=== PATIENT | male | born 1960 | race African-American/Black ===

== ENCOUNTER 2018-03-05 19:52 | Inpatient (IN) | payer OTHER ==
[~2018-03-05] VITALS: Ht 167.6 cm; Wt 94.0 kg
--- NOTE | ~2018-03-05 | EKG ---
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 : 1960 Requested By: Tila Robbins Order Number: [id number] MD: Phill Farmer Measurements Intervals [place] Rate: 62 P: 37 [place]: 168 QRS: -34 QRSD: 103 T: QT: 493 QTc: 501 Interpretive Statements Sinus rhythm Abnormal R-wave progression, late transition LVH with secondary repolarization abnormality No previous ECG available for comparison Electronically Signed On 03-06-2018 8:49:02 DIGITAL ACCOUNT DIRECTOR by Phill Farmer [email or web address] <ELECTRONICALLY SIGNED> By: Phill Farmer MD 03/06/18 0849 0646 5 Phill Farmer MD /TREV
--- NOTE | ~2018-03-05 | EKG ---
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: DELILAH : 1960 Requested By: Saritha Barton Order Number: [id number] MD: Phill Farmer Measurements Intervals [place] Rate: 75 P: 19 MO: 170 QRS: -35 QRSD: 108 T: 136 QT: 401 QTc: 448 Interpretive Statements Sinus rhythm Probable left atrial enlargement LVH with secondary repolarization abnormality No previous ECG available for comparison Electronically Signed On 03-06-2018 8:44:30 MICROBIOLOGY LAB TECHNICIAN by Phill Farmer [email or web address] <ELECTRONICALLY SIGNED> By: Phill Farmer MD 03/06/18 0844 2150 50 Phill Farmer MD /TREV
--- NOTE | ~2018-03-05 | EKG ---
[address] [address] ELECTROCARDIOGRAM REPORT Name: FANTA CHILELPH Room #: 217- DIS IN M.R.#: [id number] Admission: 03/05/18 Attend Phys: Dann Carbajal MD Discharge: 03/07/18 Date of : 58 Report #: [id number] THIS REPORT FOR: //name// 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
--- NOTE | ~2018-03-05 | EKG ---
[address] [place] [place] [address] ELECTROCARDIOGRAM REPORT Name: ESTEE CHILEL Room #: 217-P ADM IN M.R.#: [id number] Admission: 03/05/18 Attend Phys: Dann Carbajal MD Discharge: Date of : 58 Report #: [id number] THIS REPORT FOR: //name// 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: DELILAH : 1960 Requested By: Saritha Barton Order Number: [id number] MD: Phill Farmer Measurements Intervals [place] Rate: 81 P: 21 CT: 167 QRS: -38 QRSD: 108 T: 89 QT: 428 QTc: 497 Interpretive Statements Sinus rhythm Probable left atrial enlargement Incomplete left bundle branch block LVH with secondary repolarization abnormality Anterior Q waves, possibly due to LVH No previous ECG available for comparison Electronically Signed On 03-06-2018 8:43:50 ETCHER PHOTOENGRAVING by Phill Farmer [email or web address] <ELECTRONICALLY SIGNED> By: [place] [id number] Phill Farmer MD /TREV
--- NOTE | ~2018-03-05 | 2DMMODE ---
[facility] [place] [address] 2 D/M-MODE ECHOCARDIOGRAM Name: ESTEE CHILEL Room #: 217-P ADM IN M.R.#: [id number] Admission: 03/05/18 Attend Phys: Dann Carbajal MD Discharge: Date of : 58 Date of Service: 03/06/18 1437 Report #: [id number] THIS REPORT FOR: //name// APPROVED REPORT Study performed: 03/06/2018 12:32:46 EXAM: Comprehensive 2D, Doppler, and color-flow Echocardiogram Patient Location: Bedside Room #: 217 Status: routine BSA: 2.03 HR: 70 bpm BP: 107/71 mmHg Rhythm: LBBB Other Information Study Quality: Adequate/off axis window Indications Status post Cath/stent, HTN, CAD. Hx: SVT, Afib, ablation, DM, HLP. 2D Dimensions RVDd: 41.10 mm IVSd: 11.84 (7-11mm) LVOT Diam: 20.04 (18-24mm) LVDd: 47.67 mm PWd: 12.22 (7-11mm) LVDs: 38.81 (25-40mm) Aortic Root: 35.12 mm Volumes Left Atrial Volume (Systole) Single Plane 4CH: 56.15 mL Single Plane 2CH: 57.28 mL LA ESV Index: 32.00 mL/m2 Aortic Valve AoV Peak Harry.: 1.44 m/s AO Peak Gr.: 8.29 mmHg LVOT Max P.99 mmHg LVOT Max V: 0.71 m/s SANJIV Vmax: 1.55 cm2 Mitral Valve E/A Ratio: 0.7 MV Decel. Time: 242.94 ms [facility] [place] [address] 2 D/M-MODE ECHOCARDIOGRAM Name: ESTEE CHILEL Room #: [facility] ADM IN .R.#: [id number] Admission: 03/05/18 Attend Phys: Dnan Carbajal MD Discharge: Date of : 58 Date of Service: 03/06/18 1437 Report #: [id number] MV E Max Harry.: 0.49 m/s MV A Harry.: 0.73 m/s MV PHT: 70.45 ms IVRT: 107.27 ms Tricuspid Valve TR Peak Harry.: 1.75 m/s RAP Estimate: 5.00 mmHg TR Peak Gr.: 12.25 mmHg PA Pressure: 17.00 mmHg Left Ventricle The left ventricle is normal size. Regional wall motion abnormalities are noted. Paradoxical septal motion consistent with conduction abnormality. Mild concentric left ventricular hypertrophy. Left ventricular systolic function is moderately decreased.inf wall hypokinetic LVEF is 40=45% Mild diastolic dysfunction is present (impaired relaxation pattern). Right Ventricle The right ventricle is normal size. Right ventricle is mildly hypokinetic. Atria The left atrium size is normal. The right atrium size is normal. Aortic Valve The aortic valve is not well visualized. No aortic regurgitation is present. There is no aortic valvular stenosis. Mitral Valve The mitral valve is normal in structure. Trace mitral regurgitation. Tricuspid Valve The tricuspid valve is normal in structure. Trace tricuspid regurgitation. Estimated PAP is 15-20mmHg. Pulmonic Valve Pulmonic valve is not well visualized. Great Vessels The aortic root was difficult to image. Ascending aorta is not well visualized. IVC is normal in size and collapses >50% with inspiration. [facility] [address] [place] [address] 2 D/M-MODE ECHOCARDIOGRAM Name: ESTEE CHILEL Room #: 217-P ADM IN M.R.#: [id number] Admission: 03/05/18 Attend Phys: Dann Carbajal MD Discharge: Date of : 58 Date of Service: 03/06/18 1437 Report #: [id number] Pericardium There is no pericardial effusion. <Conclusion> The left ventricle is normal size. Mild concentric left ventricular hypertrophy. Left ventricular systolic function is moderately decreased.inf wall hypokinetic LVEF is 40=45% Mild diastolic dysfunction is present (impaired relaxation pattern). Right ventricle is mildly hypokinetic. There is no aortic valvular stenosis. Trace mitral regurgitation. Trace tricuspid regurgitation. Estimated PAP is 15-20mmHg. The aortic root was difficult to image. There is no pericardial effusion. <ELECTRONICALLY SIGNED> By: Matthias Gutiérrez MD, FACC 03/06/18 [phone] 36 Matthias Gutiérrez MD, FACC /INF
--- NOTE | ~2018-03-05 | CATHLAB ---
[facility] [address] [place] [address] INVASIVE PROCEDURE REPORT Name: ESTEE CHILEL Room #: 217-P ADM IN M.R.#: [id number] Admission: 03/05/18 Attend Phys: Dann Carbajal MD Discharge: Date of : 58 Date of Service: 03/07/18 1043 Report #: [id number] THIS REPORT FOR: //name// APPROVED REPORT Study performed: 03/06/2018 09:35:20 Patient Details Patient Status: In-Patient Room #: 217 The patient is a 57 year-old male Event Personnel Matthias Gutiérrez Tire Mounter, Ale Dey, BERRY PICKER MACHINE OPERATOR Monitor, Mandeep Ann RN RN, Mian Ibarra Scrub Procedures Performed Art Access - R femoral artery* Left Heart Cath w/or w/o Coronaries [id number] [facility] Aortogram Abdominal Peripheral Angio 171736 MAXIMUS Place w/wo Plasty Single RCA 298539 76387 Initial Mod Sed Same Phys/QHP Gr5y 397231 91716 Mod Sed Same Phys/QHP Ea 381475 54493 Mod Sed Same Phys/QHP Ea 043696 55589 Mod Sed Same Phys/QHP Ea 093603 Indication Chest pain Procedure Narrative The Right Groin^ was infiltrated with 1% Lidocaine subcutaneous anesthesia. A PINNACLE 6FR Sheath #[id number] sheath was inserted into the RFA^. Coronary angiography was performed using coronary diagnostic catheters. The right coronary system was accessed and visualized with a JR4 catheter. The left coronary system was accessed and visualized with a JL4 catheter. The left ventricle was accessed and visualized with a Pigtail catheter. Left ventriculogram was performed in 30 degree projection. An aortogram of the abdominal aorta was performed. Closure device was deployed with a 6 Fr MYNXGRIP 6/7F #[id number]. The patient tolerated the procedure well and there were no complications associated with the procedure. There was no hematoma. Intraoperative Conscious Sedation Sedation start time: 09:56 Case end Time: 11:20 Fentanyl 50 mcg Versed [address] [address] INVASIVE PROCEDURE REPORT Name: FANTA CHILELPH Room #: 217-P [facility] IN ..#: [id number] Admission: 03/05/18 Attend Phys: Dann Carbajal MD Discharge: Date of : 58 Date of Service: 03/07/18 1043 Report #: [id number] Fluoro Time: 14.55 minutes Dose: DAP 82933.70 cGycm2 2123 mGy Contrast Type and Amount: Omnipaque 195 ml Hemodynamics The aortic pressure is 118/69 mmHg with a mean of 93 mmHg. The left ventricular pressure is 111/13 mmHg with a mean of mmHg. The left ventricular end diastolic pressure is 23 mmHg. PCI Technique Lesion Percutaneous coronary intervention was performed on the mid right coronary artery. A LAUNCHER 6FR JR 4 #[id number] Guide Catheter was used to engage the ostium. A Luge Wire .014 x 182CM #[id number] Interventional Guidewire was used to cross the lesion. BALLOON DILATION A Balloon catheter Sprinter OTW 2.25 x 12 #[id number] was inserted and inflated up to 12.00atm for 16seconds. Additional Inflation: 14.00atm for 43seconds. A second .014 Luge wire was introduced down the RV branch. Then a 2.5mm x 12mm Sprinter OTW balloon was introduced and inflated to 8 lorraine for 30 seconds. An additional inflation was performed at 12 lorraine for 47 seconds. STENT DEPLOYMENT A drug-eluting stent RESOLUTE SLADE OTW 3.5 X 22 #[id number] was inserted and inflated up to 14.00atm for 37seconds. POST STENT DEPLOYMENT BALLOON DILATION The second .014 Luge wire was reintroduced down the RV branch and the 2.5mm x 12mm Sprinter OTW balloon was reintroduced down the RV branch. The balloon was inflated to 8atms for 32 seconds. Conclusion #1 assessment PTCA stent of a totally occluded proximal RCA dominant vessel. Placement of a 3.5 x 20 to resolute on extent postdilated 3.6 mm. ESTHER grade 3 flow ESTHER grade 3 blush proximal RCA lesion of 50-60% exist #2 successful PTCA of what presumably would be an acute marginal branch but distribution slight a posterior lateral or portion of the inferior wall large in size 100% her subtotaled to 30-40% with ESTHER grade 3 flow #3 left main is long and free of disease giving rise to LAD and circumflex #4 LAD extends to the apex with mild irregularity. 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 Anatomically nondominant. Eccentric 50% mid OM lesion #6 normal left ventricular size with subtle inferior wall hypokinesis EF 50% range #7 abdominal aorta is intact without evidence of aneurysm bilateral renal arteries are widely patent This case utilize a 2 wire approach due to the large bifurcation nature of the disease with the acute OM branch having significant distribution in the dominant right. This was both at the area of occlusion. Recommendations and plan: Continue aggressive risk factor modification. Dual antiplatelet therapy times one year. Patient transfer to CCU in stable but guarded condition. Patient is from [facility] Will recommend close follow-up with food processor once he returns home from the holiday. <ELECTRONICALLY SIGNED> By: Matthias Gutiérrez MD, FACC 03/07/18 1043 1043 104 Matthias Gutiérrez MD, FACC /INF
[2018-03-05 20:00] VITALS: BP 156/89
[2018-03-05 20:46] LABS: ABSOLUTE NEUTROPHILS 2.3 thou/uL (1.4-8.2); BASOPHILS 0.5 % (0.0-2.0); EOSINOPHILS 2.3 % (0.0-3.0); HEMATOCRIT 51.6 % (42.0-52.0); HEMOGLOBIN 17.8 gm/dL (14.0-18.0); LYMPHOCYTES 51.8 % (24.0-44.0); MCH 31.4 pg (26.0-34.0); MCHC 34.5 g/dL (28.0-37.0); MCV 91.1 fL (80.0-100.0); MONOCYTES 9.8 % (1.0-8.0); PLATELET COUNT 261 thou/uL (150-400); POLYS 35.6 % (36.0-66.0); RBC 5.67 mil/uL (4.50-6.00); RDW 12.8 % (10.5-14.5); WBC 6.6 thou/uL (4.0-11.0)
[2018-03-05 20:49] LABS: ANION GAP 10 mmol/L (7-16); BUN 13 mg/dL (7-18); CALCIUM 9.7 mg/dL (8.5-10.1); CHLORIDE 99 mmol/L (98-107); CO2 26 mmol/L (21-32); CREATININE 0.9 mg/dL (0.7-1.3); GLUCOSE 149 mg/dL (74-106); SODIUM 135 mmol/L (136-145)
[2018-03-05 20:58] LABS: ALBUMIN 4.2 g/dL (3.4-5.0); SGOT 32 U/L (15-37); SGPT 34 U/L (30-65); TOTAL BILIRUBIN 0.9 mg/dL (<0.1-1.0); TOTAL PROTEIN 8.3 g/dL (6.4-8.2); TROPONIN-I <0.06 ng/mL (<0.06)
[2018-03-06] VITALS (18 sets, daily range): BP systolic 95–165; BP diastolic 44–95
[2018-03-06] MEDS ORDERED: TOPROL XL25 MG PO (00:45)
[2018-03-06] MEDS ORDERED: PROZAC10 MG PO (00:46)
[2018-03-06 05:29] LABS: CHOLESTEROL 243 mg/dL (<200); HDL CHOLESTEROL 42 mg/dL (>40); LDL CHOLESTEROL 171 mg/dL (<100); TC:HDL 5.8 Ratio (Not establshd); TRIGLYCERIDE 153 mg/dL (<150); VLDL 31 mg/dL (<40)
[2018-03-06 05:36] LABS: SERUM ASSESSMENT Clear
[2018-03-06 05:39] LABS: TROPONIN-I 0.76 ng/mL (<0.06)
[2018-03-06] MEDS ORDERED: CRESTOR40 MG PO (11:05)
[2018-03-06] MEDS ORDERED: COZAAR 25 MG TA25 M1 PO (11:06)
[2018-03-06] MEDS ORDERED: EFFIENT10 MG PO (11:06)
[2018-03-06] MEDS ORDERED: ASPIRIN325 PO (11:06)
[2018-03-07] VITALS: BP 96/57
[2018-03-07 01:07] LABS: GLYCOHEMOGLOBIN (HGB A1C) 7.5 % (4.8-5.6)
[2018-03-07 04:00] VITALS: BP 94/56
[2018-03-07 04:12] VITALS: BP 94/56
[2018-03-07 04:23] LABS: CALCIUM 8.8 mg/dL (8.5-10.1); CREATININE 0.9 mg/dL (0.7-1.3); HEMATOCRIT 46.7 % (42.0-52.0); HEMOGLOBIN 16.3 gm/dL (14.0-18.0); MCH 31.8 pg (26.0-34.0); MCHC 34.8 g/dL (28.0-37.0); MCV 91.3 fL (80.0-100.0); POTASSIUM 4.1 mmol/L (3.5-5.1); RBC 5.11 mil/uL (4.50-6.00); RDW 12.7 % (10.5-14.5)
[2018-03-07 04:36] LABS: TROPONIN-I 4.95 ng/mL (<0.06)
[2018-03-07 07:36] VITALS: BP 124/72
[2018-03-07] MEDS ORDERED: MELATONIN5 M1 PO (11:00)
[2018-03-07 11:06] VITALS: BP 124/72
== END 2018-03-07 11:41 | disposition home or self-care (01) | DRG 247 ==
LOC: ER 19:52 → 2N 23:13 → EROBS 23:13 → 2N 03-06 01:04 → ENTRNSPT 03-07 11:29 → EDTRNSPTSTS 03-07 11:31 → 2N 03-07 11:41
PROVIDERS: Nurse Practitioner Acute Care; Nurse Practitioner Gerontology; Student in an Organized Health Care Education/Training Program
PROC: B4101ZZ Fluoroscopy of Abdominal Aorta using Low Osmolar Contrast (ICD-10-PCS; principal; 2018-03-06)
PROC: B2151ZZ Fluoroscopy of Left Heart using Low Osmolar Contrast (ICD-10-PCS; principal; 2018-03-06)
PROC: 027034Z Dilation of Coronary Artery, One Artery with Drug-eluting Intraluminal Device, Percutaneous Approach (ICD-10-PCS; principal; 2018-03-06)
PROC: 4A023N7 Measurement of Cardiac Sampling and Pressure, Left Heart, Percutaneous Approach (ICD-10-PCS; principal; 2018-03-06)
DX: I21.4 Non-ST elevation (NSTEMI) myocardial infarction (principal); I25.110 Atherosclerotic heart disease of native coronary artery with unstable angina pectoris; I48.91 Unspecified atrial fibrillation; E11.9 Type 2 diabetes mellitus without complications; F32.9 Major depressive disorder, single episode, unspecified; K59.00 Constipation, unspecified; E78.5 Hyperlipidemia, unspecified; F12.90 Cannabis use, unspecified, uncomplicated; Z86.19 Personal history of other infectious and parasitic diseases; Z82.49 Family history of ischemic heart disease and other diseases of the circulatory system; Z87.891 Personal history of nicotine dependence; Z79.82 Long term (current) use of aspirin; Z79.899 Other long term (current) drug therapy
CPT/HCPCS: 10081

== ENCOUNTER 2018-03-09 06:16 | Emergency (ER) | payer OTHER ==
[~2018-03-09] VITALS: Ht 167.6 cm; Wt 88.5 kg
[~2018-03-09 06:16] MED LIST: ASPIRIN325 PO; COZAAR 25 MG TA25 M1 PO; CRESTOR40 MG PO; EFFIENT10 MG PO; MELATONIN5 M1 PO; PROZAC10 MG PO; TOPROL XL25 MG PO
[2018-03-09 06:37] LABS: URINE CLARITY HAZY; URINE COLOR STRAW; URINE PROTEIN (DIPSTICK) NEGATIVE (Negative); URINE SPECIFIC GRAVITY > 1.030 (1.005-1.035)
[2018-03-09 06:38] LABS: URINE BILIRUBIN NEGATIVE (Negative); URINE BLOOD 1+ (Negative); URINE GLUCOSE-RANDOM* NEGATIVE (Negative); URINE KETONES 1+ (Negative); URINE LEUKOCYTES-REFLEX NEGATIVE (Negative); URINE NITRITE-REFLEX NEGATIVE (Negative); URINE UROBILINOGEN 0.2 E.U./dl (0.2-1.0)
[2018-03-09 06:53] LABS: BACTERIA-REFLEX None Seen /HPF (None Seen); CASTS None Seen /LPF (None Seen); CRYSTALS None Seen /LPF (None Seen); SQUAMOUS None Seen /LPF (0-3); URINE RBC 0-2 Rare /HPF (0-2); URINE WBC-REFLEX None Seen /HPF (0-5)
[2018-03-09] MEDS ORDERED: MIRALAX17 GM PO (08:19)
[2018-03-09] MEDS ORDERED: PEPCID20 MG PO (08:19)
[2018-03-09 08:24] LABS: HEMATOCRIT 46.8 % (42.0-52.0); HEMOGLOBIN 16.3 gm/dL (14.0-18.0); MCH 31.4 pg (26.0-34.0); MCHC 34.7 g/dL (28.0-37.0); MCV 90.4 fL (80.0-100.0); PLATELET COUNT 224 thou/uL (150-400); RBC 5.18 mil/uL (4.50-6.00); RDW 12.4 % (10.5-14.5); WBC 7.7 thou/uL (4.0-11.0)
[2018-03-09 08:34] LABS: CALCIUM 9.1 mg/dL (8.5-10.1); CREATININE 0.9 mg/dL (0.7-1.3); POTASSIUM 4.3 mmol/L (3.5-5.1)
[2018-03-09 09:14] VITALS: BP 114/71
[2018-03-09 09:39] LABS: ABSOLUTE NEUTROPHILS 5.2 thou/uL (1.4-8.2)
== END 2018-03-09 09:15 | disposition home or self-care (01) ==
LOC: ER 06:16
PROVIDERS: Student in an Organized Health Care Education/Training Program
DX: R31.9 Hematuria, unspecified (principal); K59.00 Constipation, unspecified; I48.91 Unspecified atrial fibrillation; E11.9 Type 2 diabetes mellitus without complications; F32.9 Major depressive disorder, single episode, unspecified; K75.9 Inflammatory liver disease, unspecified